=== PATIENT | male | born 1975 | race Asian ===

== ENCOUNTER 2023-03-27 13:20 | Inpatient (IN) | payer OTHER ==
[2023-03-27 14:06] VITALS: BMI 34.9
[2023-03-27] MEDS ORDERED: AMMONIUM LACTATE 12% LOTION 225 GM BOTTLE TP PRN (17:45)
[2023-03-27] MEDS ORDERED: ACETAMINOPHEN 325 MG TABLET (FP) PO PRN (17:45)
[2023-03-27] MEDS ORDERED: P-EPHED 60MG/TRIPROLIDI 2.5MG TABLET PO PRN (17:45)
[2023-03-27] MEDS ORDERED: BENZONATATE 200 MG CAPSULE PO PRN (17:45)
[2023-03-27] MEDS ORDERED: guaiFENesin 600 MG TABLET.ER (FP) PO PRN (17:45)
[2023-03-27] MEDS ORDERED: MAGNESIUM HYDROX 2400MG/30ML ORAL SUSPENSION 30 ML CUP PO PRN (17:45)
[2023-03-27] MEDS ORDERED: POLYETHYLENE GLYCOL (HEALTHYLAX) 3350 17 GM PACKET PO PRN (17:45)
[2023-03-27] MEDS ORDERED: IBUPROFEN 600 MG TABLET (FP) PO PRN (17:45)
[2023-03-27] MEDS ORDERED: IBUPROFEN 400 MG TABLET (FP) PO PRN (17:45)
[2023-03-27] MEDS ORDERED: MAG HYDROX/AL HYDROX/SIMETH 30 ML UNIT-DOSE CUP PO PRN (17:45)
[2023-03-27] MEDS ORDERED: BENZOCAINE/MENTHOL (CHLORASEPTIC ) LOZENGE MM PRN (17:45)
[2023-03-27] MEDS ORDERED: NICOTINE POLACRILEX 2 MG GUM BUC PRN (17:45)
[2023-03-27] MEDS ORDERED: COLLOIDAL OATMEAL 1 BAR EACH TP PRN (17:45)
[2023-03-27] MEDS ORDERED: LOPERAMIDE HCL 2 MG CAPSULE PO PRN (17:45)
[2023-03-27] MEDS ORDERED: TUBERCULIN PPD 5 TU/0.1ML VIAL ID ONE (21:52)
[2023-03-27] MEDS ORDERED: MELATONIN 5 MG TABLETS PO SCH (22:00)
[2023-03-27] MEDS ORDERED: TUBERCULIN PPD 5 TU/0.1ML SYRINGE (IN PATIENT USE ONLY) ID ONE (22:00)
[2023-03-27] MEDS ORDERED: THIAMINE HCL 100 MG TABLET (FP) PO SCH (22:00)
[2023-03-27 23:01] VITALS: BP 111/74; PULSE 65; RESP 18; TEMP 97.1
[2023-03-28] MEDS ORDERED: PRENATAL VITAMINS W/ FOLIC ACID TABLET (FP) PO SCH (10:00)
== END 2023-03-28 01:40 | disposition short-term general hospital (02) | DRG 772 ==
LOC: YASAS 13:20 → Y3W 18:36
PROVIDERS: ADMIT Allergy & Immunology; ATTEND Psychiatry & Neurology Pain Medicine
PROC: HZ42ZZZ Group Counseling for Substance Abuse Treatment, Cognitive-Behavioral (ICD-10-PCS; principal; 2023-03-27)
DX: F14.20 Cocaine dependence, uncomplicated (principal); F17.210 Nicotine dependence, cigarettes, uncomplicated; F20.9 Schizophrenia, unspecified; R45.851 Suicidal ideations
CPT/HCPCS: 82962; 87635